=== PATIENT | male | born 1950 | race Caucasian/White ===

== ENCOUNTER 2020-10-24 17:33 | Inpatient (IN) ==
[2020-10-24] MEDS ORDERED: Azithromycin 250 MG TABLET PO ONE (17:56)
[2020-10-24] MEDS ORDERED: 0.9 % Sodium Chloride 1,000 ML IVC ONE ×2 (17:56→19:08)
[2020-10-24] MEDS ORDERED: cefTRIAXone 1,000 MG in Water for inj. (sterile) 10 ML IVP ONE (17:56)
[2020-10-24 18:25] LABS: Basophils % 0.3 %; Eosinophils # 0.3 K/mcL (0.0-0.6); Eosinophils % 2.1 %; Hematocrit 42.5 % (37.5-50.1); Hemoglobin 14.3 g/dL (12.9-16.9); Immature Granulocytes % 1.3 % (0-4); Lymphocytes # 0.4 K/mcL (0.6-4.6); Lymphocytes % 2.8 %; Mean Corpuscular HGB Conc 33.6 g/dL (31.6-35.5); Mean Corpuscular Hemoglobin 32.1 pg (28.0-33.3); Mean Corpuscular Volume 95.5 fL (83.0-100.0); Mean Platelet Volume 9.7 fL (9.4-12.4); Monocytes # 0.8 K/mcL (0.0-1.3); Monocytes % 5.5 %; Platelet Count 122 K/mcL (140-400); Red Blood Count 4.45 M/mcL (4.19-5.50); Red Cell Distribution Width 13.2 % (11.5-14.5); White Blood Count 14.8 K/mcL (4.3-11.1)
[2020-10-24 18:55] LABS: Albumin 3.7 g/dL (3.5-5.7); Albumin/Globulin Ratio 1.3 (1.1-2.2); Bilirubin,Direct 0.3 mg/dL (0.0-0.2); Bilirubin,Indirect 1.2 mg/dL (0.0-1.0); Bilirubin,Total 1.5 mg/dL (0.3-1.0); Calcium 8.2 mg/dL (8.6-10.3); Globulin 2.9 g/dL (2.4-3.5); Total Protein 6.6 g/dL (6.4-8.9); Troponin I 0.07 ng/mL (< 0.04)
[2020-10-24] MEDS ORDERED: methylPREDNISolone 125 MG/2 ML VIAL IVP ONE (18:55)
[2020-10-24 19:00] LABS: Bilirubin,Urine Small (Negative); Blood,Urine Large (Negative); Clarity,Urine Turbid (Clear); Color,Urine Orange (Yellow); Glucose,Urine (UA) 250 mg/dL (Normal); Ketones,Urine Trace mg/dL (Negative); Leukocyte Esterase,Urine Large (Negative); Nitrite,Urine Positive (Negative); Protein,Urine >=300 mg/dL (Neg-Trace)
[2020-10-24] MEDS ORDERED: Aspirin 81 MG TAB.CHEW PO STA (19:08)
[2020-10-24 19:15] LABS: WBC,Urine TNTC per hpf (0-3)
[2020-10-24 19:15] LABS: Thyroid Stimulating Hormone 6.624 mcIU/mL (0.340-5.600)
[2020-10-24 19:16] LABS: Amorphous Sediment,Urine Moderate per hpf (None-Few); Bacteria,Urine Many per hpf (None-Few); Squamous Epithelial Cell,Urine Few per hpf (None-Few)
[2020-10-24] MEDS ORDERED: Ipratropium/Albuterol Neb 3 ML IH ONE (19:18)
[2020-10-24 22:40] LABS: Adenovirus Not Detected (Not Detect); Bordetella Pertussis Not Detected (Not Detect); Chlamydophila pneumoniae Not Detected (Not Detect); Coronavirus 229E Not Detected (Not Detect); Coronavirus HKU1 Not Detected (Not Detect); Coronavirus NL63 Not Detected (Not Detect); Coronavirus OC43 Not Detected (Not Detect); Human Metapneumovirus Not Detected (Not Detect); Human Rhinovirus/Enterovirus Not Detected (Not Detect); Influenza A Subtype 2009 H1 Not Detected (Not Detect); Influenza B Not Detected (Not Detect); Mycoplasma pneumoniae Not Detected (Not Detect); Parainfluenza Virus 1 Not Detected (Not Detect); Parainfluenza Virus 2 Not Detected (Not Detect); Parainfluenza Virus 3 Not Detected (Not Detect); Parainfluenza Virus 4 Not Detected (Not Detect); Respiratory Syncytial Virus Not Detected (Not Detect); SARS-CoV-2 Not Detected (Not Detect)
[2020-10-25] MEDS ORDERED: Ondansetron 4 MG/2 ML VIAL IVP PRN (00:19)
[2020-10-25] MEDS ORDERED: Naloxone 0.4 MG/ML INJ IVP PRN (00:19)
[2020-10-25] MEDS ORDERED: 0.9 % Sodium Chloride 1,000 ML IVC SCH (00:30)
[2020-10-25 00:35] LABS: Sodium, Urine 33.7 mEq/L
[2020-10-25 01:10] LABS: Hematocrit 38.9 % (37.5-50.1); Hemoglobin 13.1 g/dL (12.9-16.9); Mean Corpuscular HGB Conc 33.7 g/dL (31.6-35.5); Mean Corpuscular Hemoglobin 32.6 pg (28.0-33.3); Mean Corpuscular Volume 96.8 fL (83.0-100.0); Mean Platelet Volume 9.3 fL (9.4-12.4); Platelet Count 102 K/mcL (140-400); Red Blood Count 4.02 M/mcL (4.19-5.50); Red Cell Distribution Width 13.5 % (11.5-14.5); White Blood Count 17.7 K/mcL (4.3-11.1)
[2020-10-25 01:30] LABS: Calcium 7.6 mg/dL (8.6-10.3); Potassium 4.5 mEq/L (3.5-5.1)
[2020-10-25] MEDS: Ipratropium/Albuterol Neb 3 ML IH SCH ×6 (03:35→23:57)
[2020-10-25] MEDS: Doxycycline 100 MG in 0.9 % Sodium Chloride Mini Bag 100 ML IVPB SCH ×2 (05:20→17:10)
[2020-10-25] MEDS ORDERED: methylPREDNISolone 125 MG/2 ML VIAL IVP SCH ×3 (06:00→21:00)
[2020-10-25] MEDS ORDERED: cefTRIAXone 1,000 MG in Water for inj. (sterile) 10 ML IVP ONE (06:00)
[2020-10-25 06:48] LABS: Hematocrit 41.3 % (37.5-50.1); Hemoglobin 14.2 g/dL (12.9-16.9); Mean Corpuscular HGB Conc 34.4 g/dL (31.6-35.5); Mean Corpuscular Hemoglobin 32.9 pg (28.0-33.3); Mean Corpuscular Volume 95.8 fL (83.0-100.0); Mean Platelet Volume 9.9 fL (9.4-12.4); Platelet Count 106 K/mcL (140-400); Red Blood Count 4.31 M/mcL (4.19-5.50); Red Cell Distribution Width 13.6 % (11.5-14.5); White Blood Count 18.3 K/mcL (4.3-11.1)
[2020-10-25 07:02] LABS: Albumin 3.4 g/dL (3.5-5.7); Albumin/Globulin Ratio 1.2 (1.1-2.2); Bilirubin,Total 0.7 mg/dL (0.3-1.0); Calcium 7.9 mg/dL (8.6-10.3); Globulin 2.9 g/dL (2.4-3.5); Potassium 4.3 mEq/L (3.5-5.1); Total Protein 6.3 g/dL (6.4-8.9)
[2020-10-25 07:07] LABS: Anisocytosis 1+ (Not Present); Lymphocytes # 0.7 K/mcL (0.6-4.6); Monocytes # 1.1 K/mcL (0.0-1.3); Neutrophils # 16.5 K/mcL (1.6-8.9); Platelet Estimate Slight Decrease (Normal)
[2020-10-25] MEDS ORDERED: Dextrose Gel 15 GM/37.5 ML TUBE PO PRN ×2 (09:34)
[2020-10-25] MEDS ORDERED: *HR* Dextrose 50 % in Water (Vial) 50 ML VIAL IVP PRN (09:34)
[2020-10-25] MEDS ORDERED: D5% in Water 1,000 ML IVC PRN (09:34)
[2020-10-25] MEDS: Insulin LISPRO 300 UNITS/3 ML VIAL SUBQ SCH ×2 (12:29→17:10)
[2020-10-25] MEDS ORDERED: Insulin Human Regular 10 UNIT in 0.9 % Sodium Chloride 10 ML IV ONE (16:58)
[2020-10-25] MEDS ORDERED: cefTRIAXone 1,000 MG in Water for inj. (sterile) 10 ML IVP SCH (17:00)
[2020-10-25] MEDS: 0.9 % Sodium Chloride 1,000 ML IVC SCH (17:09)
[2020-10-25] MEDS: *HR* Heparin 5,000 UNIT/ML VIAL SQ SCH (17:11)
[2020-10-25] MEDS ORDERED: Insulin Human Regular 20 UNIT in 0.9 % Sodium Chloride 10 ML IV ONE (18:00)
[2020-10-25] MEDS: Piperacillin/Tazobactam 3.375 GM in 0.9 % Sodium Chloride Mini Bag 100 ML IVPB SCH (18:31)
[2020-10-25] MEDS: Budesonide/Formoterol 80/4.5 1 PUFF INH IH SCH (19:48)
[2020-10-25 20:39] LABS: Acinetobacter baumannii by PCR Not Detected (Not Detect); Enterobacteriaceae by PCR DETECTED (Not Detect); Enterococcus by PCR Not Detected (Not Detect); Staphylococcus aureus by PCR Not Detected (Not Detect); Staphylococcus by PCR Not Detected (Not Detect); Streptococcus agalactiae(B)PCR Not Detected (Not Detect); Streptococcus by PCR Not Detected (Not Detect); Streptococcus pneumoniae PCR Not Detected (Not Detect); Streptococcus pyogenes (A) PCR Not Detected (Not Detect)
[2020-10-25 20:40] LABS: Candida albicans by PCR Not Detected (Not Detect); Candida glabrata by PCR Not Detected (Not Detect); Candida krusei by PCR Not Detected (Not Detect); Candida parapsilosis by PCR Not Detected (Not Detect); Candida tropicalis by PCR Not Detected (Not Detect); Enterobacter cloacae Cmplx PCR Not Detected (Not Detect); Escherichia coli by PCR DETECTED (Not Detect); Klebsiella oxytoca by PCR Not Detected (Not Detect); Klebsiella pneumoniae by PCR Not Detected (Not Detect); Proteus by PCR Not Detected (Not Detect); Pseudomonas aeruginosa by PCR Not Detected (Not Detect); Serratia marcescens by PCR Not Detected (Not Detect)
[2020-10-25] MEDS: Insulin DETEMIR 100 UNIT/ML X5UNITS SUBQ SCH (23:10)
[2020-10-26] MEDS: Piperacillin/Tazobactam 3.375 GM in 0.9 % Sodium Chloride Mini Bag 100 ML IVPB SCH ×2 (01:04→09:22)
[2020-10-26] MEDS: 0.9 % Sodium Chloride 1,000 ML IVC SCH (01:08)
[2020-10-26 02:15] LABS: Hematocrit 38.5 % (37.5-50.1); Hemoglobin 12.9 g/dL (12.9-16.9); Mean Corpuscular HGB Conc 33.5 g/dL (31.6-35.5); Mean Corpuscular Hemoglobin 32.1 pg (28.0-33.3); Mean Corpuscular Volume 95.8 fL (83.0-100.0); Platelet Count 106 K/mcL (140-400); Red Blood Count 4.02 M/mcL (4.19-5.50); Red Cell Distribution Width 13.8 % (11.5-14.5); White Blood Count 17.6 K/mcL (4.3-11.1)
[2020-10-26 02:33] LABS: Calcium 7.5 mg/dL (8.6-10.3); Potassium 4.1 mEq/L (3.5-5.1)
[2020-10-26] MEDS: Ipratropium/Albuterol Neb 3 ML IH SCH ×6 (04:04→23:04)
[2020-10-26] MEDS: Doxycycline 100 MG in 0.9 % Sodium Chloride Mini Bag 100 ML IVPB SCH (05:49)
[2020-10-26] MEDS: *HR* Heparin 5,000 UNIT/ML VIAL SQ SCH ×2 (05:51→18:03)
[2020-10-26 07:12] LABS: Estimated Average Glucose 157 mg/dl; Hemoglobin A1C 7.1 %
[2020-10-26] MEDS ORDERED: *HR* FentaNYL (PF) 100 MCG/2 ML VIAL ONE (07:22)
[2020-10-26] MEDS ORDERED: Ondansetron 4 MG/2 ML VIAL ONE (07:22)
[2020-10-26] MEDS ORDERED: *HR* Propofol 200 MG/20 ML VIAL IVP ONE (07:22)
[2020-10-26] MEDS ORDERED: Lidocaine -MPF 2% 2 ML VIAL ONE (07:22)
[2020-10-26] MEDS ORDERED: Insulin Human Regular 20 UNIT in 0.9 % Sodium Chloride 10 ML IV ONE (07:24)
[2020-10-26] MEDS ORDERED: Lidocaine Jelly 6ml 1 APPL/6 ML JEL.PF.APP TP ONE (07:51)
[2020-10-26] MEDS: Budesonide/Formoterol 80/4.5 1 PUFF INH IH SCH ×2 (08:09→19:54)
[2020-10-26] MEDS: Tiotropium 10 INH DOSE IH SCH (08:12)
[2020-10-26] MEDS ORDERED: predniSONE 20 MG TABLET PO SCH (09:00)
[2020-10-26] MEDS: amLODIPine 5 MG TABLET PO SCH (09:21)
[2020-10-26] MEDS: Ascorbic Acid 500 MG TABLET PO SCH (09:21)
[2020-10-26] MEDS: Aspirin Enteric Coated 81 MG Tablet PO SCH (09:21)
[2020-10-26] MEDS: Cholecalciferol (D-3) 1,000 UNIT (25MCG) TABLET PO SCH (09:21)
[2020-10-26] MEDS: Fluticasone Propionate Nasal 50 MCG/SPRAY BOTTLE NS SCH (09:22)
[2020-10-26] MEDS: Insulin LISPRO 300 UNITS/3 ML VIAL SUBQ SCH ×4 (10:38→22:06)
[2020-10-26] MEDS: cefTRIAXone 1,000 MG in Water for inj. (sterile) 10 ML IVP SCH (18:02)
[2020-10-26] MEDS: Insulin DETEMIR 100 UNIT/ML X5UNITS SUBQ SCH (21:24)
[2020-10-27] MEDS ORDERED: Insulin LISPRO 300 UNITS/3 ML VIAL SUBQ ONE (00:04)
[2020-10-27] MEDS: Ipratropium/Albuterol Neb 3 ML IH SCH ×5 (03:36→20:00)
[2020-10-27 05:04] LABS: Eosinophils % 0.1 %; Hemoglobin 14.1 g/dL (12.9-16.9)
[2020-10-27 05:06] LABS: Basophils # 0.1 K/mcL (0.0-0.2); Basophils % 0.4 %; Immature Granulocytes % 0.6 % (0-4); Immature Platelets 5.4 % (1.1-6.1); Lymphocytes # 0.6 K/mcL (0.6-4.6); Lymphocytes % 4.7 %; Mean Corpuscular HGB Conc 32.8 g/dL (31.6-35.5); Mean Corpuscular Volume 97.5 fL (83.0-100.0); Monocytes % 7.5 %; Neutrophils # 11.1 K/mcL (1.6-8.9); Red Blood Count 4.41 M/mcL (4.19-5.50); Red Cell Distribution Width 14.5 % (11.5-14.5); Segmented Neutrophils % 86.7 %; White Blood Count 12.8 K/mcL (4.3-11.1)
[2020-10-27 05:30] LABS: Platelet Count 88 K/mcL (140-400); Platelet Estimate Decreased (Normal)
[2020-10-27 05:43] LABS: Albumin 3.2 g/dL (3.5-5.7); Albumin/Globulin Ratio 1.1 (1.1-2.2); Bilirubin,Total 0.6 mg/dL (0.3-1.0); Calcium 7.7 mg/dL (8.6-10.3); Globulin 2.8 g/dL (2.4-3.5); Potassium 4.5 mEq/L (3.5-5.1)
[2020-10-27] MEDS: *HR* Heparin 5,000 UNIT/ML VIAL SQ SCH ×2 (06:35→17:04)
[2020-10-27] MEDS: Tiotropium 10 INH DOSE IH SCH (07:34)
[2020-10-27] MEDS: Budesonide/Formoterol 80/4.5 1 PUFF INH IH SCH ×2 (07:34→20:01)
[2020-10-27] MEDS: Fluticasone Propionate Nasal 50 MCG/SPRAY BOTTLE NS SCH (10:00)
[2020-10-27] MEDS: Insulin LISPRO 300 UNITS/3 ML VIAL SUBQ SCH ×4 (10:24→20:39)
[2020-10-27] MEDS: Ascorbic Acid 500 MG TABLET PO SCH (10:36)
[2020-10-27] MEDS: Aspirin Enteric Coated 81 MG Tablet PO SCH (10:36)
[2020-10-27] MEDS: amLODIPine 5 MG TABLET PO SCH (10:37)
[2020-10-27] MEDS: Cholecalciferol (D-3) 1,000 UNIT (25MCG) TABLET PO SCH (10:37)
[2020-10-27] MEDS: cefTRIAXone 1,000 MG in Water for inj. (sterile) 10 ML IVP SCH (10:38)
[2020-10-27] MEDS: Acetaminophen 325 MG TABLET PO PRN ×2 (13:30→23:31)
[2020-10-27] MEDS: Insulin DETEMIR 100 UNIT/ML X5UNITS SUBQ SCH (20:40)
[2020-10-28 01:27] LABS: Basophils % 0.3 %; Eosinophils % 0.8 %; Immature Granulocytes % 1.8 % (0-4); Monocytes % 12.5 %
[2020-10-28 01:29] LABS: Eosinophils # 0.1 K/mcL (0.0-0.6); Hematocrit 38.2 % (37.5-50.1); Hemoglobin 12.6 g/dL (12.9-16.9); Lymphocytes # 0.7 K/mcL (0.6-4.6); Lymphocytes % 8.9 %; Mean Corpuscular Hemoglobin 31.4 pg (28.0-33.3); Mean Corpuscular Volume 95.3 fL (83.0-100.0); Mean Platelet Volume 9.9 fL (9.4-12.4); Neutrophils # 6.1 K/mcL (1.6-8.9); Platelet Count 109 K/mcL (140-400); Red Blood Count 4.01 M/mcL (4.19-5.50); Segmented Neutrophils % 75.7 %
[2020-10-28 01:48] LABS: Calcium 7.8 mg/dL (8.6-10.3); Potassium 3.8 mEq/L (3.5-5.1)
[2020-10-28] MEDS: Ipratropium/Albuterol Neb 3 ML IH SCH ×5 (03:45→15:15)
[2020-10-28] MEDS: *HR* Heparin 5,000 UNIT/ML VIAL SQ SCH (05:06)
[2020-10-28] MEDS: Budesonide/Formoterol 80/4.5 1 PUFF INH IH SCH (07:26)
[2020-10-28] MEDS: Tiotropium 10 INH DOSE IH SCH (07:28)
[2020-10-28] MEDS: Insulin LISPRO 300 UNITS/3 ML VIAL SUBQ SCH ×2 (07:38→12:40)
[2020-10-28] MEDS ORDERED: Piperacillin/Tazobactam 3.375 GM in 0.9 % Sodium Chloride Mini Bag 100 ML IVPB SCH ×2 (08:00→20:00)
[2020-10-28] MEDS: Cholecalciferol (D-3) 1,000 UNIT (25MCG) TABLET PO SCH (09:36)
[2020-10-28] MEDS: Aspirin Enteric Coated 81 MG Tablet PO SCH (09:36)
[2020-10-28] MEDS: amLODIPine 5 MG TABLET PO SCH (09:36)
[2020-10-28] MEDS: Ascorbic Acid 500 MG TABLET PO SCH (09:36)
[2020-10-28] MEDS: Fluticasone Propionate Nasal 50 MCG/SPRAY BOTTLE NS SCH (09:37)
[2020-10-28 10:51] VITALS: BP 156/82
[2020-10-28 16:19] LABS: Adenovirus Not Detected (Not Detect); Bordetella Pertussis Not Detected (Not Detect); Chlamydophila pneumoniae Not Detected (Not Detect); Coronavirus 229E Not Detected (Not Detect); Coronavirus HKU1 Not Detected (Not Detect); Coronavirus NL63 Not Detected (Not Detect); Coronavirus OC43 Not Detected (Not Detect); Human Metapneumovirus Not Detected (Not Detect); Human Rhinovirus/Enterovirus Not Detected (Not Detect); Influenza A Subtype 2009 H1 Not Detected (Not Detect); Influenza B Not Detected (Not Detect); Mycoplasma pneumoniae Not Detected (Not Detect); Parainfluenza Virus 1 Not Detected (Not Detect); Parainfluenza Virus 2 Not Detected (Not Detect); Parainfluenza Virus 3 Not Detected (Not Detect); Parainfluenza Virus 4 Not Detected (Not Detect); Respiratory Syncytial Virus Not Detected (Not Detect); SARS-CoV-2 Not Detected (Not Detect)
== END 2020-10-28 16:56 | disposition home or self-care (01) | DRG 871 ==
LOC: 2ANU 17:33 → EMEROOARM 17:33 → SUATTDRO 22:49 → 2ANU 23:40 → SUATTDRO 10-26 11:15
PROVIDERS: ADMIT Internal Medicine; ATTEND Internal Medicine

== ENCOUNTER 2020-11-27 13:42 | Inpatient (IN) ==
[2020-11-27] MEDS ORDERED: Ondansetron 4 MG/2 ML VIAL IVP ONE (14:36)
[2020-11-27] MEDS ORDERED: 0.9 % Sodium Chloride 1,000 ML IVC ONE (14:36)
[2020-11-27] MEDS ORDERED: Acetaminophen 325 MG TABLET PO ONE (14:36)
[2020-11-27 15:02] LABS: BUN/Creatinine Ratio 16 (6-26); Blood Urea Nitrogen 59 mg/dL (8-23); Calcium 8.3 mg/dL (8.6-10.3); Carbon Dioxide 20 mEq/L (23-29); Chloride 103 mEq/L (98-107); Glucose 421 mg/dL (70-105); Magnesium 1.9 mg/dL (1.6-2.6); Osmolality,Calculated 308 (280-300); Potassium 5.6 mEq/L (3.5-5.1); Sodium 132 mEq/L (136-145); Troponin I < 0.03 ng/mL (< 0.04); eGFR For African Americans 20 (> 60); eGFR For Non-African Americans 17 (> 60)
[2020-11-27 15:16] LABS: Thyroid Stimulating Hormone 5.852 mcIU/mL (0.340-5.600)
[2020-11-27 15:42] LABS: Basophils # 0.1 K/mcL (0.0-0.2); Basophils % 0.5 %; Eosinophils # 0.2 K/mcL (0.0-0.6); Eosinophils % 1.5 %; Hematocrit 38.4 % (37.5-50.1); Immature Granulocytes % 0.5 % (0-4); Lymphocytes # 1.5 K/mcL (0.6-4.6); Lymphocytes % 11.8 %; Mean Corpuscular HGB Conc 31.3 g/dL (31.6-35.5); Mean Corpuscular Hemoglobin 30.8 pg (28.0-33.3); Mean Corpuscular Volume 98.7 fL (83.0-100.0); Mean Platelet Volume 8.3 fL (9.4-12.4); Monocytes # 1.1 K/mcL (0.0-1.3); Monocytes % 8.5 %; Neutrophils # 9.7 K/mcL (1.6-8.9); Platelet Count 315 K/mcL (140-400); Red Blood Count 3.89 M/mcL (4.19-5.50); Red Cell Distribution Width 12.7 % (11.5-14.5); Segmented Neutrophils % 77.2 %; White Blood Count 12.5 K/mcL (4.3-11.1)
[2020-11-27 16:34] LABS: Bilirubin,Urine Negative (Negative); Blood,Urine Moderate (Negative); Clarity,Urine Ex.Turbid (Clear); Color,Urine Light-Yellow (Yellow); Glucose,Urine (UA) 300 mg/dL (Normal); Ketones,Urine Negative (Negative); Leukocyte Esterase,Urine Large (Negative); Nitrite,Urine Negative (Negative); Protein,Urine >=300 mg/dL (Neg-Trace); Specific Gravity,Urine 1.009 (1.010-1.025); Urobilinogen,Urine Normal (Normal)
[2020-11-27 16:40] LABS: WBC,Urine TNTC per hpf (0-3)
[2020-11-27 16:42] LABS: RBC,Urine Present per hpf (0-3); Squamous Epithelial Cell,Urine Present per hpf (None-Few)
[2020-11-27] MEDS ORDERED: cefTRIAXone 1,000 MG in Water for inj. (sterile) 10 ML IVP STA (17:41)
[2020-11-27] MEDS: Ringers Solution, Lactated 1,000 ML IVC SCH (19:00)
[2020-11-27] MEDS ORDERED: Naloxone 0.4 MG/ML INJ IVP PRN (20:24)
[2020-11-27] MEDS ORDERED: Ondansetron 4 MG/2 ML VIAL IVP PRN (20:24)
[2020-11-27] MEDS ORDERED: Melatonin 3 MG TABLET PO PRN (20:24)
[2020-11-27] MEDS ORDERED: *HR* Promethazine 25 MG/ML VIAL IM PRN (20:24)
[2020-11-27] MEDS ORDERED: Insulin Human Regular 10 UNIT in 0.9 % Sodium Chloride 10 ML IV ONE (20:50)
[2020-11-27] MEDS ORDERED: D5% in Water 1,000 ML IVC PRN (20:51)
[2020-11-27] MEDS ORDERED: *HR* Dextrose 50 % in Water (Vial) 50 ML VIAL IVP PRN (20:51)
[2020-11-27] MEDS ORDERED: Dextrose Gel 15 GM/37.5 ML TUBE PO PRN ×2 (20:51)
[2020-11-27] MEDS ORDERED: Insulin LISPRO 300 UNITS/3 ML VIAL SUBQ SCH (21:00)
[2020-11-27] MEDS ORDERED: *HR* Dextrose 50 % in Water (Vial) 50 ML VIAL IVP ONE (21:00)
[2020-11-27 21:30] LABS: Estimated Average Glucose 260 mg/dl; Hemoglobin A1C 10.7 %
[2020-11-27] MEDS: Sucralfate 1 GM TABLET PO SCH (21:32)
[2020-11-27] MEDS: 0.9 % Sodium Chloride 1,000 ML IVC SCH (21:33)
[2020-11-27] MEDS: Budesonide/Formoterol 80/4.5 1 PUFF INH IH SCH (23:19)
[2020-11-28 00:32] LABS: Basophils # 0.1 K/mcL (0.0-0.2); Basophils % 0.5 %; Eosinophils # 0.1 K/mcL (0.0-0.6); Eosinophils % 1.1 %; Hematocrit 38.7 % (37.5-50.1); Hemoglobin 12.2 g/dL (12.9-16.9); Immature Granulocytes % 0.3 % (0-4); Lymphocytes # 1.1 K/mcL (0.6-4.6); Lymphocytes % 9.1 %; Mean Corpuscular HGB Conc 31.5 g/dL (31.6-35.5); Mean Corpuscular Hemoglobin 30.8 pg (28.0-33.3); Mean Corpuscular Volume 97.7 fL (83.0-100.0); Mean Platelet Volume 8.2 fL (9.4-12.4); Monocytes % 8.3 %; Platelet Count 320 K/mcL (140-400); Red Blood Count 3.96 M/mcL (4.19-5.50); Red Cell Distribution Width 12.5 % (11.5-14.5); Segmented Neutrophils % 80.7 %; White Blood Count 12.3 K/mcL (4.3-11.1)
[2020-11-28 00:51] LABS: Calcium 7.9 mg/dL (8.6-10.3); Potassium 5.3 mEq/L (3.5-5.1)
[2020-11-28] MEDS: Ringers Solution, Lactated 1,000 ML IVC SCH ×2 (03:28→15:43)
[2020-11-28] MEDS: *HR* Heparin 5,000 UNIT/ML VIAL SQ SCH ×2 (05:16→17:01)
[2020-11-28] MEDS: cefTRIAXone 1,000 MG in Water for inj. (sterile) 10 ML IVP SCH (08:19)
[2020-11-28] MEDS: lisinopriL 20 MG TABLET PO SCH (08:20)
[2020-11-28] MEDS: amLODIPine 5 MG TABLET PO SCH (08:20)
[2020-11-28] MEDS: Aspirin Enteric Coated 81 MG Tablet PO SCH (08:20)
[2020-11-28] MEDS: Sucralfate 1 GM TABLET PO SCH ×2 (08:20→22:13)
[2020-11-28] MEDS: Insulin LISPRO 300 UNITS/3 ML VIAL SUBQ SCH ×4 (08:33→22:11)
[2020-11-28] MEDS: Fluticasone Propionate Nasal 50 MCG/SPRAY BOTTLE NS SCH (08:34)
[2020-11-28] MEDS: 0.9 % Sodium Chloride 1,000 ML IVC SCH (11:42)
[2020-11-28] MEDS: Budesonide/Formoterol 80/4.5 1 PUFF INH IH SCH ×2 (11:48→21:43)
[2020-11-28] MEDS: Tiotropium 10 INH DOSE IH SCH (11:50)
[2020-11-29 01:12] LABS: Hematocrit 35.3 % (37.5-50.1); Mean Corpuscular HGB Conc 31.2 g/dL (31.6-35.5); Mean Corpuscular Hemoglobin 30.5 pg (28.0-33.3); Mean Corpuscular Volume 97.8 fL (83.0-100.0); Mean Platelet Volume 8.2 fL (9.4-12.4); Platelet Count 302 K/mcL (140-400); Red Blood Count 3.61 M/mcL (4.19-5.50); Red Cell Distribution Width 12.8 % (11.5-14.5); White Blood Count 11.8 K/mcL (4.3-11.1)
[2020-11-29 01:29] LABS: Albumin 2.7 g/dL (3.5-5.7); Albumin/Globulin Ratio 0.8 (1.1-2.2); Bilirubin,Total 0.2 mg/dL (0.3-1.0); Calcium 7.5 mg/dL (8.6-10.3); Globulin 3.5 g/dL (2.4-3.5); Total Protein 6.2 g/dL (6.4-8.9)
[2020-11-29 01:56] LABS: Estimated Average Glucose 263 mg/dl; Hemoglobin A1C 10.8 %
[2020-11-29] MEDS: *HR* Heparin 5,000 UNIT/ML VIAL SQ SCH ×2 (06:28→17:14)
[2020-11-29] MEDS: Tiotropium 10 INH DOSE IH SCH (07:43)
[2020-11-29] MEDS: Budesonide/Formoterol 80/4.5 1 PUFF INH IH SCH ×2 (07:43→20:16)
[2020-11-29] MEDS: Insulin LISPRO 300 UNITS/3 ML VIAL SUBQ SCH ×4 (09:15→22:07)
[2020-11-29] MEDS: lisinopriL 20 MG TABLET PO SCH (09:16)
[2020-11-29] MEDS: amLODIPine 5 MG TABLET PO SCH (09:16)
[2020-11-29] MEDS: Aspirin Enteric Coated 81 MG Tablet PO SCH (09:17)
[2020-11-29] MEDS: cefTRIAXone 1,000 MG in Water for inj. (sterile) 10 ML IVP SCH (09:17)
[2020-11-29] MEDS: Sucralfate 1 GM TABLET PO SCH ×2 (09:17→22:05)
[2020-11-29] MEDS: Fluticasone Propionate Nasal 50 MCG/SPRAY BOTTLE NS SCH (12:10)
[2020-11-29] MEDS: Lactobacillus 1 EACH CAP.SPRINK PO SCH (22:06)
[2020-11-30 05:54] LABS: Hematocrit 35.1 % (37.5-50.1); Hemoglobin 11.6 g/dL (12.9-16.9); Mean Corpuscular Hemoglobin 31.8 pg (28.0-33.3); Mean Corpuscular Volume 96.2 fL (83.0-100.0); Mean Platelet Volume 8.1 fL (9.4-12.4); Platelet Count 294 K/mcL (140-400); Red Blood Count 3.65 M/mcL (4.19-5.50); Red Cell Distribution Width 12.8 % (11.5-14.5); White Blood Count 11.5 K/mcL (4.3-11.1)
[2020-11-30] MEDS: *HR* Heparin 5,000 UNIT/ML VIAL SQ SCH (06:01)
[2020-11-30 06:14] LABS: Albumin 2.7 g/dL (3.5-5.7); Albumin/Globulin Ratio 0.7 (1.1-2.2); Bilirubin,Total 0.3 mg/dL (0.3-1.0); Calcium 7.7 mg/dL (8.6-10.3); Globulin 3.8 g/dL (2.4-3.5); Potassium 5.4 mEq/L (3.5-5.1); Total Protein 6.5 g/dL (6.4-8.9)
[2020-11-30 06:16] LABS: Magnesium 1.6 mg/dL (1.6-2.6); Phosphorous 3.5 mg/dL (2.7-4.5)
[2020-11-30] MEDS ORDERED: Levothyroxine 25 MCG TABLET PO SCH (06:30)
[2020-11-30 06:39] LABS: Folate 10.7 ng/mL (3.0-16.0)
[2020-11-30] MEDS ORDERED: Calcium Gluconate 1gm/50mL 1 GM/50 ML BAG IVPB ONE (08:08)
[2020-11-30] MEDS ORDERED: Insulin Human Regular 10 UNIT in 0.9 % Sodium Chloride 10 ML IV ONE (08:08)
[2020-11-30] MEDS ORDERED: *HR* Dextrose 50 % in Water (Vial) 50 ML VIAL IVP ONE (08:08)
[2020-11-30] MEDS ORDERED: SODIUM ZIRCONIUM CYCLOSILICATE 5 GM POWD.PACK PO SCH (09:00)
[2020-11-30] MEDS: Aspirin Enteric Coated 81 MG Tablet PO SCH (09:10)
[2020-11-30] MEDS: lisinopriL 20 MG TABLET PO SCH (09:10)
[2020-11-30] MEDS: Sucralfate 1 GM TABLET PO SCH (09:10)
[2020-11-30] MEDS: Lactobacillus 1 EACH CAP.SPRINK PO SCH (09:10)
[2020-11-30] MEDS: amLODIPine 5 MG TABLET PO SCH (09:10)
[2020-11-30] MEDS: cefTRIAXone 1,000 MG in Water for inj. (sterile) 10 ML IVP SCH (09:11)
[2020-11-30] MEDS: Fluticasone Propionate Nasal 50 MCG/SPRAY BOTTLE NS SCH (09:11)
[2020-11-30] MEDS: Insulin LISPRO 300 UNITS/3 ML VIAL SUBQ SCH ×3 (09:13→12:03)
[2020-11-30] MEDS: Budesonide/Formoterol 80/4.5 1 PUFF INH IH SCH (09:46)
[2020-11-30] MEDS: Tiotropium 10 INH DOSE IH SCH (09:46)
[2020-11-30 11:17] VITALS: BP 118/69; PULSE 82; TEMP 97.7; O2SAT 94
== END 2020-11-30 16:35 | disposition home or self-care (01) | DRG 690 ==
LOC: EMEROOARM 13:42 → 3BNU 13:42 → SUATTDRO 18:54 → 3BNU 19:42 → SUATTDRO 11-28 16:00
PROVIDERS: ADMIT Internal Medicine; ATTEND Internal Medicine

== ENCOUNTER 2021-01-14 11:06 | Inpatient (IN) ==
[2021-01-14 15:41] LABS: Hematocrit 30.7 % (37.5-50.1); Hemoglobin 9.5 g/dL (12.9-16.9); Mean Corpuscular HGB Conc 30.9 g/dL (31.6-35.5); Mean Corpuscular Volume 96.8 fL (83.0-100.0); Mean Platelet Volume 9.8 fL (9.4-12.4); Platelet Count 419 K/mcL (140-400); Red Blood Count 3.17 M/mcL (4.19-5.50); Red Cell Distribution Width 14.6 % (11.5-14.5); White Blood Count 12.9 K/mcL (4.3-11.1)
[2021-01-14 16:01] LABS: Albumin 3.2 g/dL (3.5-5.7); Calcium 8.7 mg/dL (8.6-10.3); Phosphorous 5.7 mg/dL (2.7-4.5)
[2021-01-14 16:11] LABS: Lymphocytes # 1.3 K/mcL (0.6-4.6); Monocytes # 1.3 K/mcL (0.0-1.3); Neutrophils # 10.1 K/mcL (1.6-8.9); Platelet Estimate Normal (Normal); Toxic Granulation Present (Not Present)
[2021-01-14] MEDS ORDERED: Albuterol 2.5 MG/3 ML NEBULIZER IH ONE (16:22)
[2021-01-14 16:27] LABS: Bilirubin,Urine Negative (Negative); Blood,Urine Moderate (Negative); Clarity,Urine Ex.Turbid (Clear); Color,Urine Yellow (Yellow); Glucose,Urine (UA) 500 mg/dL (Normal); Ketones,Urine Negative (Negative); Leukocyte Esterase,Urine Large (Negative); Nitrite,Urine Negative (Negative); Protein,Urine 70 mg/dL (Neg-Trace); Specific Gravity,Urine 1.011 (1.010-1.025); Urobilinogen,Urine Normal (Normal)
[2021-01-14] MEDS ORDERED: cefTRIAXone 1,000 MG in Water for inj. (sterile) 10 ML IVP ONE (16:28)
[2021-01-14] MEDS ORDERED: SODIUM ZIRCONIUM CYCLOSILICATE 5 GM POWD.PACK PO ONE ×2 (16:30→22:36)
[2021-01-14 16:43] LABS: WBC,Urine TNTC per hpf (0-3)
[2021-01-14 16:44] LABS: Bacteria,Urine Few per hpf (None-Few)
[2021-01-14] MEDS ORDERED: Ondansetron 4 MG/2 ML VIAL IVP PRN (16:55)
[2021-01-14] MEDS ORDERED: Melatonin 3 MG TABLET PO PRN (16:55)
[2021-01-14] MEDS ORDERED: Naloxone 0.4 MG/ML INJ IVP PRN (16:55)
[2021-01-14] MEDS ORDERED: Sodium Bicarbonate 75 MEQ in 0.45 % Sodium Chloride 1,000 ML IVC SCH (17:00)
[2021-01-14] MEDS: *HR* Heparin 5,000 UNIT/ML VIAL SQ SCH (22:07)
[2021-01-14 22:13] LABS: Calcium 8.5 mg/dL (8.6-10.3); Potassium 5.5 mEq/L (3.5-5.1)
[2021-01-15 01:17] LABS: Basophils % 0.3 %; Eosinophils # 0.2 K/mcL (0.0-0.6); Eosinophils % 1.8 %; Hematocrit 29.4 % (37.5-50.1); Hemoglobin 9.3 g/dL (12.9-16.9); Immature Granulocytes % 1.7 % (0-4); Lymphocytes # 1.3 K/mcL (0.6-4.6); Mean Corpuscular HGB Conc 31.6 g/dL (31.6-35.5); Mean Corpuscular Hemoglobin 29.9 pg (28.0-33.3); Mean Corpuscular Volume 94.5 fL (83.0-100.0); Monocytes # 0.8 K/mcL (0.0-1.3); Monocytes % 6.2 %; Neutrophils # 10.1 K/mcL (1.6-8.9); Platelet Count 375 K/mcL (140-400); Red Blood Count 3.11 M/mcL (4.19-5.50); Red Cell Distribution Width 14.7 % (11.5-14.5); White Blood Count 12.7 K/mcL (4.3-11.1)
[2021-01-15 02:36] LABS: Albumin 2.9 g/dL (3.5-5.7); Albumin/Globulin Ratio 0.6 (1.1-2.2); Bilirubin,Total 0.2 mg/dL (0.3-1.0); Calcium 8.3 mg/dL (8.6-10.3); Globulin 4.7 g/dL (2.4-3.5); Magnesium 1.9 mg/dL (1.6-2.6); Phosphorous 5.8 mg/dL (2.7-4.5); Potassium 5.5 mEq/L (3.5-5.1); Thyroid Stimulating Hormone 6.268 mcIU/mL (0.340-5.600); Total Protein 7.6 g/dL (6.4-8.9)
[2021-01-15] MEDS ORDERED: *HR* Dextrose 50 % in Water (Vial) 50 ML VIAL IVP PRN (02:54)
[2021-01-15] MEDS ORDERED: D5% in Water 1,000 ML IVC PRN (02:54)
[2021-01-15] MEDS ORDERED: Dextrose Gel 15 GM/37.5 ML TUBE PO PRN ×2 (02:54)
[2021-01-15] MEDS ORDERED: Sodium Bicarbonate 50 MEQ/50 ML VIAL IVP ONE ×2 (02:59)
[2021-01-15] MEDS: Insulin LISPRO 300 UNITS/3 ML VIAL SUBQ SCH ×6 (03:13→21:30)
[2021-01-15] MEDS: Sodium Bicarbonate 75 MEQ in 0.45 % Sodium Chloride 1,000 ML IVC SCH ×2 (03:37→11:25)
[2021-01-15] MEDS ORDERED: Insulin LISPRO 300 UNITS/3 ML VIAL SUBQ ONE ×2 (04:36→06:30)
[2021-01-15 05:14] LABS: Estimated Average Glucose 301 mg/dl; Hemoglobin A1C 12.1 %
[2021-01-15 05:48] LABS: Calcium 8.3 mg/dL (8.6-10.3); Potassium 5.1 mEq/L (3.5-5.1)
[2021-01-15] MEDS ORDERED: Levothyroxine 25 MCG TABLET PO SCH (06:30)
[2021-01-15] MEDS: *HR* Heparin 5,000 UNIT/ML VIAL SQ SCH (07:26)
[2021-01-15 08:03] LABS: Potassium 4.9 mEq/L (3.5-5.1)
[2021-01-15] MEDS: Insulin DETEMIR 100 UNIT/ML X5UNITS SUBQ SCH ×2 (08:31→21:29)
[2021-01-15] MEDS: cefTRIAXone 1,000 MG in Water for inj. (sterile) 10 ML IVP SCH (08:31)
[2021-01-15 12:03] LABS: Potassium 4.8 mEq/L (3.5-5.1)
[2021-01-15 14:19] LABS: INR 1.4; Prothrombin Time 15.6 Seconds (9.4-12.1)
[2021-01-15 14:25] LABS: Calcium 7.9 mg/dL (8.6-10.3); Potassium 5.2 mEq/L (3.5-5.1)
[2021-01-15] MEDS ORDERED: *HR* Dextrose 50 % in Water (Syg) 50 ML SYRINGE IVP PRN (15:00)
[2021-01-16] MEDS: Sodium Bicarbonate 75 MEQ in 0.45 % Sodium Chloride 1,000 ML IVC SCH ×2 (00:13→12:11)
[2021-01-16 01:50] LABS: Basophils # 0.1 K/mcL (0.0-0.2); Basophils % 0.4 %; Eosinophils # 0.3 K/mcL (0.0-0.6); Eosinophils % 2.6 %; Hematocrit 25.6 % (37.5-50.1); Hemoglobin 8.1 g/dL (12.9-16.9); Immature Granulocytes % 1.2 % (0-4); Lymphocytes # 1.9 K/mcL (0.6-4.6); Lymphocytes % 15.3 %; Mean Corpuscular HGB Conc 31.6 g/dL (31.6-35.5); Mean Corpuscular Hemoglobin 29.3 pg (28.0-33.3); Mean Corpuscular Volume 92.8 fL (83.0-100.0); Mean Platelet Volume 8.4 fL (9.4-12.4); Monocytes # 0.9 K/mcL (0.0-1.3); Monocytes % 7.6 %; Neutrophils # 8.8 K/mcL (1.6-8.9); Platelet Count 478 K/mcL (140-400); Red Blood Count 2.76 M/mcL (4.19-5.50); Red Cell Distribution Width 14.5 % (11.5-14.5); Segmented Neutrophils % 72.9 %; White Blood Count 12.1 K/mcL (4.3-11.1)
[2021-01-16 02:13] LABS: Albumin 2.4 g/dL (3.5-5.7); Albumin/Globulin Ratio 0.6 (1.1-2.2); Bilirubin,Total 0.2 mg/dL (0.3-1.0); Calcium 7.6 mg/dL (8.6-10.3); Globulin 4.3 g/dL (2.4-3.5); Potassium 4.8 mEq/L (3.5-5.1); Total Protein 6.7 g/dL (6.4-8.9)
[2021-01-16] MEDS ORDERED: Fluticasone Propionate Nasal 50 MCG/SPRAY BOTTLE NS PRN (07:25)
[2021-01-16] MEDS ORDERED: *HR* Midazolam HCl 2 MG/2 ML VIAL IVP ONE ×2 (08:36→09:24)
[2021-01-16] MEDS ORDERED: *HR* FentaNYL (PF) 100 MCG/2 ML VIAL IVP ONE ×2 (08:36→09:24)
[2021-01-16] MEDS ORDERED: 0.9 % Sodium Chloride 500 ML ONE ×2 (08:37→08:43)
[2021-01-16] MEDS: Insulin LISPRO 300 UNITS/3 ML VIAL SUBQ SCH ×4 (08:50→21:36)
[2021-01-16] MEDS ORDERED: Isovue-300 50ML VIAL IVP ONE ×3 (09:25→09:39)
[2021-01-16] MEDS: Aspirin Enteric Coated 81 MG Tablet PO SCH (10:18)
[2021-01-16] MEDS: cefTRIAXone 1,000 MG in Water for inj. (sterile) 10 ML IVP SCH (10:19)
[2021-01-16] MEDS: Insulin DETEMIR 100 UNIT/ML X5UNITS SUBQ SCH ×2 (10:19→21:34)
[2021-01-16] MEDS: Budesonide/Formoterol 80/4.5 1 PUFF INH IH SCH ×2 (11:16→19:19)
[2021-01-16] MEDS: Tiotropium 10 INH DOSE IH SCH (11:16)
[2021-01-17] MEDS: Sodium Bicarbonate 75 MEQ in 0.45 % Sodium Chloride 1,000 ML IVC SCH ×2 (01:43→16:47)
[2021-01-17 07:42] LABS: Basophils % 0.3 %; Eosinophils # 0.2 K/mcL (0.0-0.6); Eosinophils % 1.5 %; Hematocrit 26.3 % (37.5-50.1); Hemoglobin 8.5 g/dL (12.9-16.9); Immature Granulocytes % 0.8 % (0-4); Lymphocytes % 14.5 %; Mean Corpuscular HGB Conc 32.3 g/dL (31.6-35.5); Mean Corpuscular Hemoglobin 29.5 pg (28.0-33.3); Mean Corpuscular Volume 91.3 fL (83.0-100.0); Mean Platelet Volume 8.1 fL (9.4-12.4); Monocytes % 7.1 %; Neutrophils # 10.6 K/mcL (1.6-8.9); Platelet Count 397 K/mcL (140-400); Red Blood Count 2.88 M/mcL (4.19-5.50); Red Cell Distribution Width 14.5 % (11.5-14.5); Segmented Neutrophils % 75.8 %; White Blood Count 13.9 K/mcL (4.3-11.1)
[2021-01-17 08:06] LABS: Albumin 2.5 g/dL (3.5-5.7); Albumin/Globulin Ratio 0.6 (1.1-2.2); Bilirubin,Total 0.3 mg/dL (0.3-1.0); Calcium 7.6 mg/dL (8.6-10.3); Potassium 4.6 mEq/L (3.5-5.1); Total Protein 6.5 g/dL (6.4-8.9)
[2021-01-17] MEDS: Aspirin Enteric Coated 81 MG Tablet PO SCH (09:44)
[2021-01-17] MEDS: Insulin DETEMIR 100 UNIT/ML X5UNITS SUBQ SCH ×2 (09:44→20:29)
[2021-01-17] MEDS: cefTRIAXone 1,000 MG in Water for inj. (sterile) 10 ML IVP SCH (09:44)
[2021-01-17] MEDS: Insulin LISPRO 300 UNITS/3 ML VIAL SUBQ SCH ×4 (09:45→20:30)
[2021-01-17] MEDS: Budesonide/Formoterol 80/4.5 1 PUFF INH IH SCH ×2 (10:49→19:19)
[2021-01-17] MEDS: Tiotropium 10 INH DOSE IH SCH (10:50)
[2021-01-18 03:22] VITALS: PULSE 82; O2SAT 96
[2021-01-18 06:34] LABS: Albumin 2.5 g/dL (3.5-5.7); Albumin/Globulin Ratio 0.6 (1.1-2.2); Bilirubin,Total 0.3 mg/dL (0.3-1.0); Calcium 7.7 mg/dL (8.6-10.3); Globulin 4.2 g/dL (2.4-3.5); Potassium 4.4 mEq/L (3.5-5.1); Total Protein 6.7 g/dL (6.4-8.9)
[2021-01-18 07:03] VITALS: BP 109/61; TEMP 98.1
[2021-01-18] MEDS: Insulin LISPRO 300 UNITS/3 ML VIAL SUBQ SCH (07:22)
[2021-01-18] MEDS: cefTRIAXone 1,000 MG in Water for inj. (sterile) 10 ML IVP SCH (09:18)
[2021-01-18] MEDS: Aspirin Enteric Coated 81 MG Tablet PO SCH (09:18)
[2021-01-18] MEDS: Tiotropium 10 INH DOSE IH SCH (10:53)
[2021-01-18] MEDS: Budesonide/Formoterol 80/4.5 1 PUFF INH IH SCH (10:53)
[2021-01-18 16:11] LABS: ANA IgG by ELISA NONE DETECTED (None Detected)
[2021-01-18] MEDS ORDERED: Insulin DETEMIR 100 UNIT/ML X5UNITS SUBQ SCH (21:00)
[2021-01-19 23:55] LABS: ANCA IFA Titer <1:20 (<1:20)
[2021-01-20 10:59] LABS: ANCA IFA Pattern NONE DETECTED (None Detected); Serine Protease-3 Antibody 2 AU/mL (0-19)
== END 2021-01-18 12:36 | disposition home or self-care (01) | DRG 683 ==
LOC: SUATTDRO → EMEROOARM 11:06 → 2ANU 20:10 → SUATTDRO 20:10 → 2ANU 20:47
PROVIDERS: ADMIT Hospitalist; ATTEND Hospitalist